=== PATIENT | male | born 1935 | race Caucasian/White ===

== ENCOUNTER → 2016-07-28 | Outpatient (CLI) | payer MEDICARE, OTHER | END | disposition home or self-care (01) | LOC: PCVCIMAG 16:11 | PROVIDERS: ATTEND Internal Medicine Cardiovascular Disease | DX: I08.3 Combined rheumatic disorders of mitral, aortic and tricuspid valves (principal); I13.0 Hypertensive heart and chronic kidney disease with heart failure and stage 1 through stage 4 chronic kidney disease, or unspecified chronic kidney disease; I50.43 Acute on chronic combined systolic (congestive) and diastolic (congestive) heart failure; N18.3 Chronic kidney disease, stage 3 (moderate); I42.9 Cardiomyopathy, unspecified; I27.2 Other secondary pulmonary hypertension; E78.00 Pure hypercholesterolemia, unspecified; J44.9 Chronic obstructive pulmonary disease, unspecified | CPT/HCPCS: 93306; G0463 ==

== ENCOUNTER → 2016-10-16 | Outpatient (CLI) | payer MEDICARE, OTHER ==
--- NOTE | 2016-10-16 16:16 | PCVCIMAG ---
APPROVED REPORT Study performed: 10/16/2016 09:50:07 EXAM: Comprehensive 2D, Doppler, and color-flow Echocardiogram Patient Location: Echo lab Status: routine BSA: 1.57 HR: 63 bpmBP: 170/84 mmHg Rhythm: NSR Other Information Study Quality: Adequate Indications Aortic Valve Disease Congestive Heart Failure CAD Aortic Stenosis 2D Dimensions LVEF(%): 50.07 (>50%) IVSd: 15.95 (7-11mm)LVOT Diam: 24.22 (18-24mm) LVDd: 37.60 mm PWd: 14.09 (7-11mm)Ascending Ao: 35.00 (22-36mm) LVDs: 28.24 (25-40mm) Left Atrium: 43.30 (27-40mm) LV Single Plane 4CH: 60.21 % LV Single Plane 2CH: 57.48 %Suarez's LVEF: 58.85 % Biplane EF: 57.2 % Volumes Left Atrial Volume (Systole) Single Plane 4CH: 63.19 mLSingle Plane 2CH: 92.25 mL LA ESV Index: 57.00 mL/m2 Aortic Valve AoV Peak Domingo.: 3.79 m/s AO Peak Gr.: 57.36 mmHgLVOT Max P.37 mmHg AO Mean Gr.: 34.56 mmHgLVOT Mean P.75 mmHg AO V2 Mean: 2.80 m/sLVOT Max V: 0.92 m/s AO V2 VTI: 93.16 cmLVOT Mean V: 0.62 m/s ANTHONY (VTI): 1.23 [id number] V1 VTI: 24.81 cm ANTHONY Vmax: 1.12 cm2 AI Vmax: 4.88 m/sSV (LVOT): 114.19 mL AI Mcdonough: 3.36 m/s2 AI PHT: 421.09 ms Mitral Valve MV Peak Gr.: 13.93 mmHg MV Mean Gr.: 3.09 mmHgE/A Ratio: 0.6 MV Decel. Time: 363.66 ms MV E Max Domingo.: 0.88 m/s MV A Domingo.: 1.48 m/s MV Max Domingo.: 1.87 m/s MV Mean Domingo.: 0.75 m/s MV VTI: 393.49 mm MVA VTI: 290.20 mm2 MV PHT: 114.82 ms MVA (PHT): 1.92 cm2 IVRT: 152.25 ms Pulmonary Valve PV Peak Domingo.: 0.90 m/sPV Peak Gr.: 3.24 mmHg Pulmonary Vein P Vein S: 0.39 m/sP Vein A: 0.78 m/s P Vein D: 0.49 m/sP Vein A Dur.: 155.7 msec P Vein S/D Ratio: 0.80 Tricuspid Valve TR Peak Domingo.: 3.67 m/s TR Peak Gr.: 53.80 mmHg Left Ventricle The left ventricle is normal size. There is normal LV segmental wall motion. Moderate concentric left ventricular hypertrophy. Left ventricular systolic function is normal. The left ventricular ejection fraction is within the normal range. LVEF is 60%. Grade I - abnormal relaxation pattern. Right Ventricle The right ventricle is normal size. The right ventricular systolic function is normal. Atria Left atrium is moderately dilated. Right atrium is moderately dilated. Aortic Valve The aortic valve is moderately to severely sclerotic. The aortic valve is trileaflet. Mild to moderate aortic regurgitation. There is moderate to severe valvular aortic stenosis. Calculated aortic valve area is 1.1 cm2 with maximum pressure gradient of 57 mmHg and mean pressure gradient of 35 mmHg. Mitral Valve Mitral annular calcification is moderate to severe posteriorly. Mild mitral regurgitation. Mild mitral stenosis with MVA of 1.9 cm2 and mean gradient of 3.1 mmHg. Tricuspid Valve The tricuspid valve is normal in structure. Moderate tricuspid regurgitation with PAP of 64 mmHg. Pulmonic Valve The pulmonary valve is normal in structure. There is mild pulmonic valvular regurgitation. Great Vessels The aortic root is normal in size. IVC is normal in size and collapses with >50% inspiration Pericardium There is no pericardial effusion. <Conclusion> The left ventricle is normal size. Moderate concentric left ventricular hypertrophy. LVEF is 60%. Grade I - abnormal relaxation pattern. The right ventricle is normal size. Left atrium is moderately dilated. Right atrium is moderately dilated. Mild to moderate aortic regurgitation. Mild mitral regurgitation. Moderate tricuspid regurgitation with PAP of 64 mmHg. There is no pericardial effusion.
--- NOTE | 2016-10-16 22:11 | PCVCIMAG ---
EXAM: BILATERAL RENAL ULTRASOUND AND BILATERAL RENAL DUPLEX INDICATION: Hypertension FINDINGS: Right kidney: Length measures 9.0 cm. No hydronephrosis or extensive renal scarring. Right renal duplex: Adequate technical quality. 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 The aortic to renal artery ratio is 4.0. The renal vein is patent. Left kidney: Length measures 10.1 cm. No hydronephrosis or extensive renal scarring. Left renal duplex: Adequate technical quality. No sonographic evidence of renal artery stenosis. The aortic to renal artery ratio is 2.3. The renal vein is patent. Bladder: No obvious abnormalities. 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 No high-grade left renal artery stenosis. LOC:OFFICE
== END | disposition home or self-care (01) ==
LOC: PCVCIMAG 09:09
PROVIDERS: ATTEND Internal Medicine Cardiovascular Disease
DX: I08.3 Combined rheumatic disorders of mitral, aortic and tricuspid valves (principal); I11.0 Hypertensive heart disease with heart failure; I50.9 Heart failure, unspecified; I25.10 Atherosclerotic heart disease of native coronary artery without angina pectoris; I70.1 Atherosclerosis of renal artery; I73.9 Peripheral vascular disease, unspecified; E78.5 Hyperlipidemia, unspecified; I77.89 Other specified disorders of arteries and arterioles; Z87.01 Personal history of pneumonia (recurrent); Z96.0 Presence of urogenital implants; Z87.891 Personal history of nicotine dependence
CPT/HCPCS: 76770; 80061; 93005; 93306; 93975; G0463

== ENCOUNTER → 2017-02-28 | Outpatient (CLI) | payer MEDICARE, OTHER ==
[~2017-02-28] MED LIST: DIAZEPAM 10 MG TABLET.; HEPARIN SODIUM 5,000 UNIT/ML VIAL for PCVC.; IOHEXOL 300 MG/ML 100ML VIAL.; IOHEXOL 350 MG/ML 100 ML VIAL.; IV NORMAL SALINE 1000ML BAG 1,000 ML; LIDOCAINE 1% Multi-Dose 20 ML VIAL.; MIDAZOLAM HCL/PF 2 MG/2 ML VIAL.; NITROGLYCERIN PREMIX 250 ML IV; WATER FOR INJECTION,STERILE 10 ML IJ; ceFAZolin SODIUM 1 GM VIAL; fentaNYL PF VIAL 100 MCG/2 ML VIAL; hydrALAZINE 20 MG/ML VIAL.
== END | disposition home or self-care (01) ==
LOC: PCVCIMAG 08:12
DX: I65.21 Occlusion and stenosis of right carotid artery (principal); G45.8 Other transient cerebral ischemic attacks and related syndromes; I70.1 Atherosclerosis of renal artery; I73.9 Peripheral vascular disease, unspecified; I10 Essential (primary) hypertension; E78.5 Hyperlipidemia, unspecified; E78.00 Pure hypercholesterolemia, unspecified
CPT/HCPCS: 36223; 36252; 37236; 37246; 37247; 76770; 76937; 93306; 93458; 93880; 93975; 99152; 99153; C1725; C1751; C1757; C1760; C1769; C1876; C1887; C1894; J0360; J0690; J1644; J2250; J3010; J3490; J7030; Q9967